=== PATIENT | male | born 1975 | race American Indian/Alaskan Native ===

== ENCOUNTER 2020-02-22 02:45 | Emergency (ER) | payer SELFPAY ==
[2020-02-22 03:01] VITALS: BP 141/87
== END 2020-02-22 09:26 | disposition left against medical advice (07) ==
LOC: ED 02:45
DX: Z53.21 Procedure and treatment not carried out due to patient leaving prior to being seen by health care provider (principal)

== ENCOUNTER 2021-04-21 02:01 | Emergency (ER) | payer SELFPAY ==
[2021-04-21 02:07] VITALS: BP 135/93
[2021-04-21] MEDS ORDERED: AMOXICILLIN/K CLAV 875/125MG TAB PO ONE (02:17)
[2021-04-21] MEDS ORDERED: IBUPROFEN 800 MG TAB PO ONE (02:17)
--- NOTE | 2021-04-21 02:22 | Emergency Department Report ---
ED General Adult HPI - General Chief complaint: Sore Throat Stated complaint: SORE THROAT Time Seen by Provider: 04/21/21 02:11 Source: patient Mode of arrival: Ambulatory Limitations: No Limitations - History of Present Illness Initial comments: Is a 46-year-old -[place] male who presents with dental pain x3 days. This is a chronic problem for this patient. States he cannot see the dentist until middle May 2021. Labs today include toothache 5/10 aching sharp exacerbated by hot and cold stimuli. There is no ear or throat pain there is no shortness of breath no wheezing no stridor. There is been no nausea or vomiting. Patient is tolerating p.o. intake. - Related Data Previous Rx's Medication Instructions Recorded Last Taken Type Amoxicillin/Potassium Clav 1 each PO BID #14 tablet 04/21/21 Unknown Rx [Augmentin 875-125 Tablet] Chlorhexidine Mouthwash [Peridex] 15 ml MM BID #1 bottle 04/21/21 Unknown Rx Ibuprofen [Motrin 800 MG tab] 800 mg PO Q8HR PRN #30 tablet 04/21/21 Unknown Rx Allergies Allergy/AdvReac Type Severity Reaction Status Date / Time No Known Allergies Allergy Unverified 02/22/20 03:01 ED Review of Systems ROS: Stated complaint: SORE THROAT Other details as noted in HPI Constitutional: denies: chills, fever Eyes: denies: eye pain, eye discharge, vision change ENT: dental pain Respiratory: denies: cough, shortness of breath, wheezing Cardiovascular: denies: chest pain, palpitations Endocrine: no symptoms reported Gastrointestinal: as per HPI. denies: abdominal pain, nausea, vomiting Genitourinary: denies: urgency, dysuria Musculoskeletal: denies: back pain, joint swelling, arthralgia Skin: denies: rash, lesions Neurological: denies: headache, weakness, numbness, paresthesias, confusion, vertigo Psychiatric: denies: anxiety, depression Hematological/Lymphatic: denies: easy bleeding, easy bruising ED Past Medical Hx - Past Medical History Hx Diabetes: Yes - Surgical History Additional Surgical History: RT forearm - Social History Smoking Status: Current Every Day Smoker Substance Use Type: Alcohol, Marijuana - Medications Home Medications: Home Medications Medication Instructions Recorded Confirmed Last Taken Type Amoxicillin/Potassium Clav 1 each PO BID #14 tablet 04/21/21 Unknown Rx [Augmentin 875-125 Tablet] Chlorhexidine Mouthwash [Peridex] 15 ml MM BID #1 bottle 04/21/21 Unknown Rx Ibuprofen [Motrin 800 MG tab] 800 mg PO Q8HR PRN #30 tablet 04/21/21 Unknown Rx ED Physical Exam - General Limitations: No Limitations General appearance: alert, in no apparent distress - Head Head exam: Present: normocephalic, normal inspection - Eye Eye exam: Present: normal appearance, PERRL, EOMI. Absent: conjunctival inje ction, nystagmus Pupils: Present: normal accommodation - ENT ENT exam: Present: mucous membranes moist, TM's normal bilaterally, normal external ear exam - Expanded ENT Exam Expanded Ear exam: Present: normal external inspection Mouth exam: Present: tongue normal. Absent: drooling, trismus Teeth exam: Present: dental caries, dental tenderness # (no focal abcsess no gum or facial swelling ). Absent: fractured tooth # Throat exam: Positive: normal inspection. Negative: tonsillar erythema, tonsillomegaly, tonsillar exudate, R peritonsillar mass, L peritonsillar mass - Neck Neck exam: Present: normal inspection, full ROM, lymphadenopathy. Absent: tenderness, meningismus, thyromegaly - Respiratory Respiratory exam: Present: normal lung sounds bilaterally. Absent: respiratory distress, wheezes, rales, rhonchi, stridor, chest wall tenderness - Cardiovascular Cardiovascular Exam: Present: regular rate, normal rhythm, normal heart sounds. Absent: systolic murmur, diastolic murmur, rubs, gallop - GI/Abdominal GI/Abdominal exam: Present: soft, normal bowel sounds. Absent: distended, tenderness, bruit, hernia - Rectal Rectal exam: Present: deferred - Extremities Exam Extremities exam: Present: normal inspection, full ROM, normal capillary refill. Absent: tenderness - Back Exam Back exam: Present: normal inspection, full ROM, tenderness. Absent: CVA tenderness (R), CVA tenderness (L) - Neurological Exam Neurological exam: Present: alert, oriented X3, CN II-XII intact, normal gait, reflexes normal. Absent: motor sensory deficit - Psychiatric Psychiatric exam: Present: normal affect, normal mood - Skin Skin exam: Present: warm, dry, intact, normal color. Absent: rash ED Course Vital Signs 04/21/21 02:03 Temperature 98.2 F Pulse Rate 72 Respiratory 16 Rate Blood Pressure 135/93 [Left] O2 Sat by Pulse 97 Oximetry ED Medical Decision Making - Medical Decision Making This is straightforward infected dental caries without focal abscess. Plan DC to home with prescriptions, follow-up with dentist patient verbalized agreement and understanding with discharge plan. Patient DC'd home in stable condition at this time. Patient is currently tolerating p.o. intake airway is patent there is no fever or chills. Critical care attestation.: If time is entered above; I have spent that time in minutes in the direct care of this critically ill patient, excluding procedure time. ED Disposition Clinical Impression: Infected dental caries Disposition: HOME / SELF CARE / HOMELESS Is pt being admited?: No Does the pt Need Aspirin: No Condition: Stable Instructions: Dental Abscess Additional Instructions: Follow-up with dentist in 2 to 3 days. All medications as prescribed. Call dentist tomorrow for earlier appointment. Return to emergency department should symptoms worsen. Prescriptions: Amoxicillin/Potassium Clav [Augmentin 875-125 Tablet] 1 each PO BID #14 tablet Ibuprofen [Motrin 800 MG tab] 800 mg PO Q8HR PRN #30 tablet PRN Reason: pain fever Chlorhexidine Mouthwash [Peridex] 15 ml MM BID #1 bottle Referrals: [facility] [Outside] - 3-5 Days Forms: Work/School Release Form(ED) Time of Disposition: 02:41
== END 2021-04-21 04:00 | disposition home or self-care (01) ==
LOC: ED 02:01
DX: K02.9 Dental caries, unspecified (principal); E11.9 Type 2 diabetes mellitus without complications; F17.200 Nicotine dependence, unspecified, uncomplicated; F12.90 Cannabis use, unspecified, uncomplicated; Z72.89 Other problems related to lifestyle; Z79.899 Other long term (current) drug therapy
CPT/HCPCS: 99282

== ENCOUNTER 2021-12-25 19:57 | Emergency (ER) | payer SELFPAY ==
[2021-12-25] MEDS ORDERED: TETANUS,DIPH,PERTUSS(ACELL) VACCINE 0.5 ML SYRINGE IM ONE (21:42)
[2021-12-25] MEDS ORDERED: LIDOCAINE (2%) 20 MG/1 ML VIAL 20 ML MDV INFILTRATI STA (21:47)
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
[2021-12-26 02:27] VITALS: BP 112/76
== END 2021-12-26 01:57 | disposition home or self-care (01) ==
LOC: ED 19:57
DX: S61.412A Laceration without foreign body of left hand, initial encounter (principal); E11.9 Type 2 diabetes mellitus without complications; F17.200 Nicotine dependence, unspecified, uncomplicated; F12.90 Cannabis use, unspecified, uncomplicated; Z72.89 Other problems related to lifestyle; Z79.899 Other long term (current) drug therapy; Y04.8XXA Assault by other bodily force, initial encounter; Y93.89 Activity, other specified; Y92.89 Other specified places as the place of occurrence of the external cause; Y99.8 Other external cause status
CPT/HCPCS: 12001; 73130; 90471; 90715; 99283; J3490